=== PATIENT | male | born 1995 | race Caucasian/White ===

== ENCOUNTER 2020-02-01 16:00 | Emergency (ER) | payer OTHER ==
[~2020-02-01] VITALS: Ht 172.7 cm; Wt 77.1 kg
[2020-02-01 16:34] VITALS: Ht 172.7 cm; Wt 77.1 kg
[2020-02-01 18:01] VITALS: BP 115/91
== END 2020-02-01 18:01 | disposition home or self-care (01) ==
LOC: ED 16:00
DX: S62.316A Displaced fracture of base of fifth metacarpal bone, right hand, initial encounter for closed fracture (principal); W22.8XXA Striking against or struck by other objects, initial encounter; Y93.89 Activity, other specified; Y92.89 Other specified places as the place of occurrence of the external cause; Y99.8 Other external cause status
CPT/HCPCS: Q0092

== ENCOUNTER 2020-03-26 09:03 | Emergency (ER) | payer OTHER ==
[~2020-03-26] VITALS: Ht 167.6 cm; Wt 78.0 kg
[2020-03-26 09:08] VITALS: Ht 167.6 cm; Wt 78.0 kg
[2020-03-26 10:06] VITALS: BP 133/88
== END 2020-03-26 10:06 | disposition home or self-care (01) ==
LOC: ED 09:03
DX: K40.90 Unilateral inguinal hernia, without obstruction or gangrene, not specified as recurrent (principal)